=== PATIENT | female | born 1955 | race African-American/Black ===

== ENCOUNTER 2018-07-25 14:57 | Inpatient (IN) | payer MEDICAID ==
[~2018-07-25] VITALS: Ht 162.6 cm; Wt 58.5 kg
[2018-07-25] MEDS ORDERED: ALBU18HF2 IH (15:01)
[2018-07-25] MEDS ORDERED: IPRATROPIUM BROMIDE (0.02%) 0.5MG/2.5ML NEB HHN STA (16:18)
[2018-07-25] MEDS ORDERED: METHYLPREDNISOLONE SOD SUCC 125 MG/2 ML VIAL IV STA (16:18)
[2018-07-25] MEDS ORDERED: ALBUTEROL (0.083%) 2.5MG/3ML NEB HHN STA (16:18)
[2018-07-25] MEDS ORDERED: ASPIRIN 81MG TABLET PO ONE (16:30)
[2018-07-25 16:58] LABS: BASOPHILS % 0.9 % (0.0-2.0); CHLORIDE 109 mEq/L (98-107); EOSINOPHILS % 8.1 % (0.0-5.0); HEMATOCRIT. 40.2 % (36.0-48.0); HEMOGLOBIN. 13.1 g/dL (12.0-16.0); LYMPHOCYTES % 34.6 % (20.0-50.0); MEAN CORPUSCULAR HEMOGLOBIN 27.8 pg (28.0-32.0); MEAN CORPUSCULAR VOLUME 85.6 fL (81.0-99.0); MEAN PLATELET VOLUME 7.6 fl (7.4-10.4); MONOCYTES % 6.2 % (2.0-8.0); NEUTROPHILS % 50.2 % (40.0-76.0); PLATELET 219 x1000/uL (130-400); RED CELL DISTRIBUTION WIDTH 14.8 % (11.6-14.6)
[2018-07-25 17:09] LABS: PARTIAL THROMBOPLASTIN TIME 27.7 sec (23.4-31.0)
[2018-07-25] MEDS ORDERED: CLONIDINE 0.1MG TABLET PO PRN (18:45)
[2018-07-25] MEDS ORDERED: ACETAMINOPHEN 325MG TABLET PO PRN (18:45)
[2018-07-25] MEDS ORDERED: ONDANSETRON HCL 4MG/2ML INJ IV PRN (18:45)
[2018-07-25] MEDS ORDERED: ZOLPIDEM TARTRATE 5MG TABLET PO PRN (18:45)
[2018-07-25] MEDS ORDERED: GUAIFENESIN-DM 200MG-20MG/10ML UDC PO PRN (18:45)
[2018-07-25] MEDS ORDERED: GUAIFENESIN 600MG ER TABLET PO SCH (21:00)
[2018-07-25] MEDS ORDERED: GUAIFENESIN 600MG ER TABLET PO NR (23:00)
[2018-07-26] MEDS: IPRATROPIUM/ALBUTEROL 0.5-3(2.5)MG/3ML NEB HHN PRN ×2 (00:20→05:02)
[2018-07-26] MEDS: IPRATROPIUM/ALBUTEROL 0.5-3(2.5)MG/3ML NEB HHN SCH ×5 (00:20→21:04)
[2018-07-26 04:37] LABS: BASOPHILS % 0.6 % (0.0-2.0); EOSINOPHILS % 0.1 % (0.0-5.0); HEMATOCRIT. 41.3 % (36.0-48.0); HEMOGLOBIN. 13.3 g/dL (12.0-16.0); LYMPHOCYTES % 12.5 % (20.0-50.0); MEAN CORPUSCULAR HEMOGLOBIN 27.3 pg (28.0-32.0); MEAN CORPUSCULAR VOLUME 84.5 fL (81.0-99.0); MEAN PLATELET VOLUME 7.5 fl (7.4-10.4); MONOCYTES % 1.6 % (2.0-8.0); NEUTROPHILS % 85.2 % (40.0-76.0); PLATELET 225 x1000/uL (130-400); RED BLOOD CELL COUNT 4.89 mill/uL (4.2-5.4); RED CELL DISTRIBUTION WIDTH 14.9 % (11.6-14.6)
[2018-07-26 04:43] LABS: CHLORIDE 106 mEq/L (98-107)
[2018-07-26 08:00] VITALS: BP 99/51
[2018-07-26] MEDS: GUAIFENESIN 600MG ER TABLET PO SCH ×2 (08:59→21:55)
[2018-07-26] MEDS: METHYLPREDNISOLONE SOD SUCC 40 MG/ML VIAL IV SCH ×3 (10:05→17:05)
[2018-07-26 12:00] VITALS: BP 121/66
[2018-07-26 16:00] VITALS: BP 118/72
[2018-07-26 16:05] LABS: CLARITY URINE CLEAR (CLEAR); COLOR URINE YELLOW (YELLOW); KETONES URINE NEGATIVE (NEGATIVE); LEUKOCYTE ESTERASE URINE 1+ (NEGATIVE); NITRITE URINE NEGATIVE (NEGATIVE); OCCULT BLOOD URINE NEGATIVE (NEGATIVE); PH URINE 6.5 (4.5-8.0); PROTEIN URINE NEGATIVE (NEGATIVE); SPECIFIC GRAVITY URINE 1.016 (1.005-1.030); UROBILINOGEN URINE 0.2 E.U./dL (0.2-1.0)
[2018-07-26 16:29] LABS: CANNABINOID URINE SCREEN NEGATIVE (NEGATIVE)
[2018-07-26 16:30] LABS: *AMPHETAMINES SCREEN URINE NEGATIVE (NEGATIVE); *BARBITURATES SCREEN URINE NEGATIVE (NEGATIVE); *BENZODIAZEPINES SCREEN URINE NEGATIVE (NEGATIVE); *COCAINE SCREEN URINE PRESUMTIVE POSITIVE (NEGATIVE); METHADONE URINE SCREEN NEGATIVE (NEGATIVE); OPIATES URINE SCREEN NEGATIVE (NEGATIVE)
[2018-07-26 16:31] LABS: PHENCYCLIDINE URINE SCREEN NEGATIVE (NEGATIVE)
[2018-07-26] MEDS: MONTELUKAST SODIUM 10MG TABLET PO SCH (17:05)
[2018-07-26 20:00] VITALS: BP 119/57
[2018-07-27] MEDS: IPRATROPIUM/ALBUTEROL 0.5-3(2.5)MG/3ML NEB HHN SCH ×6 (00:22→17:40)
[2018-07-27] MEDS: METHYLPREDNISOLONE SOD SUCC 40 MG/ML VIAL IV SCH ×3 (00:45→16:19)
[2018-07-27 00:54] VITALS: BP 119/71
[2018-07-27 08:00] VITALS: BP 111/63
[2018-07-27] MEDS: GUAIFENESIN 600MG ER TABLET PO SCH (10:38)
[2018-07-27 12:00] VITALS: BP 107/61
[2018-07-27] MEDS ORDERED: POLYETHYLENE GLYCOL 3350 (17GM) 1 DOSE PACK PO SCH (13:30)
[2018-07-27] MEDS ORDERED: BENZONATATE 100MG CAPSULE PO PRN (13:30)
[2018-07-27] MEDS ORDERED: GUAI600T26 MT (14:10)
[2018-07-27] MEDS ORDERED: FLUT1DIS2 INH (14:10)
[2018-07-27] MEDS ORDERED: MED4 MT (14:10)
[2018-07-27 16:17] VITALS: BP 108/63
[2018-07-27] MEDS: MONTELUKAST SODIUM 10MG TABLET PO SCH (16:19)
[2018-07-27 17:05] VITALS: BP 108/63
== END 2018-07-27 18:05 | disposition home or self-care (01) | DRG 816 ==
LOC: ER 14:57 → 8WST 18:21 → EDBEDREQSVC 23:19 → ENRESERV 07-26 05:01
PROVIDERS: ADMIT Internal Medicine; ATTEND Internal Medicine
DX: T40.5X1A Poisoning by cocaine, accidental (unintentional), initial encounter (principal); J96.00 Acute respiratory failure, unspecified whether with hypoxia or hypercapnia; J44.1 Chronic obstructive pulmonary disease with (acute) exacerbation; E87.8 Other disorders of electrolyte and fluid balance, not elsewhere classified; K59.00 Constipation, unspecified; F14.90 Cocaine use, unspecified, uncomplicated; Z87.891 Personal history of nicotine dependence; Z79.899 Other long term (current) drug therapy; J68.0 Bronchitis and pneumonitis due to chemicals, gases, fumes and vapors
CPT/HCPCS: 36415; 71045; 80048; 80305; 83880; 84484; 93005; 93970; 96374; 99285; J2920; J2930; J7611; J7620

== ENCOUNTER 2018-12-16 05:22 | Inpatient (IN) | payer MEDICAID ==
[2018-12-16] VITALS (10 sets, daily range): BP systolic 125–156; BP diastolic 69–96
[~2018-12-16] VITALS: Ht 162.6 cm; Wt 54.4 kg
[~2018-12-16 05:22] MED LIST: ALBU18HF2 IH; FLUT1DIS2 INH; GUAI600T26 MT; MED4 MT
[2018-12-16] MEDS ORDERED: IPRATROPIUM BROMIDE (0.02%) 0.5MG/2.5ML NEB HHN STA (05:24)
[2018-12-16] MEDS ORDERED: MAGNESIUM 2 G PREMIX 50 ML IV STA (05:24)
[2018-12-16] MEDS ORDERED: ALBUTEROL (0.083%) 2.5MG/3ML NEB HHN STA (05:24)
[2018-12-16] MEDS ORDERED: METHYLPREDNISOLONE SOD SUCC 125 MG/2 ML VIAL IV STA (05:24)
[2018-12-16 05:47] LABS: HEMATOCRIT 41.9 % (36.0-48.0); HEMOGLOBIN 13.8 g/dL (12.0-16.0); MEAN CORPUSCULAR HEMOGLOBIN 27.8 pg (28.0-32.0); MEAN CORPUSCULAR VOLUME 84.5 fL (81.0-99.0); PLATELET 189 x1000/uL (130-400); RED BLOOD CELL COUNT 4.96 mill/uL (4.2-5.4); RED CELL DISTRIBUTION WIDTH 14.8 % (11.6-14.6)
[2018-12-16 06:00] LABS: CHLORIDE 105 mEq/L (98-107)
[2018-12-16] MEDS ORDERED: HYDROCODONE/ACETAMINOPHEN 5/325MG TABLET PO PRN (09:30)
[2018-12-16] MEDS ORDERED: LORAZEPAM 0.5MG TABLET PO PRN (09:30)
[2018-12-16] MEDS ORDERED: CLONIDINE 0.1MG TABLET PO PRN (09:30)
[2018-12-16] MEDS ORDERED: DOCUSATE SODIUM 100MG CAPSULE PO PRN (09:30)
[2018-12-16] MEDS ORDERED: IPRATROPIUM/ALBUTEROL 0.5-3(2.5)MG/3ML NEB INH PRN (09:30)
[2018-12-16] MEDS ORDERED: ONDANSETRON HCL 4MG/2ML INJ IV PRN (09:30)
[2018-12-16] MEDS ORDERED: ACETAMINOPHEN 325MG TABLET PO PRN (09:30)
[2018-12-16] MEDS: ENOXAPARIN 40MG/0.4ML SYR SUBCUT SCH (11:16)
[2018-12-16] MEDS: BUDESONIDE 0.5MG/2ML NEB HHN SCH ×2 (12:55→20:35)
[2018-12-16] MEDS ORDERED: GUAIFENESIN 200MG TABLET PO PRN (13:15)
[2018-12-16] MEDS: AMLODIPINE 2.5MG TABLET PO SCH (13:41)
[2018-12-16] MEDS ORDERED: METHYLPREDNISOLONE SOD SUCC 125 MG/2 ML VIAL IV SCH (14:00)
[2018-12-16 15:08] LABS: *AMPHETAMINES SCREEN URINE NEGATIVE (NEGATIVE)
[2018-12-16 15:09] LABS: *BARBITURATES SCREEN URINE NEGATIVE (NEGATIVE); *BENZODIAZEPINES SCREEN URINE NEGATIVE (NEGATIVE); *COCAINE SCREEN URINE PRESUMTIVE POSITIVE (NEGATIVE); CANNABINOID URINE SCREEN NEGATIVE (NEGATIVE); OPIATES URINE SCREEN NEGATIVE (NEGATIVE); PHENCYCLIDINE URINE SCREEN NEGATIVE (NEGATIVE)
[2018-12-16 15:10] LABS: METHADONE URINE SCREEN NEGATIVE (NEGATIVE)
[2018-12-16] MEDS: IPRATROPIUM/ALBUTEROL 0.5-3(2.5)MG/3ML NEB HHN SCH ×2 (16:56→20:36)
[2018-12-16] MEDS: MONTELUKAST SODIUM 10MG TABLET PO SCH (17:47)
[2018-12-16] MEDS: METHYLPREDNISOLONE SOD SUCC 125 MG/2 ML VIAL IV SCH (21:42)
[2018-12-17] VITALS: BP 135/84
[2018-12-17] MEDS: IPRATROPIUM/ALBUTEROL 0.5-3(2.5)MG/3ML NEB HHN SCH ×5 (00:30→16:19)
[2018-12-17 02:00] VITALS: BP 122/74
[2018-12-17 04:00] VITALS: BP 128/90
[2018-12-17] MEDS: METHYLPREDNISOLONE SOD SUCC 125 MG/2 ML VIAL IV SCH ×2 (05:32→13:25)
[2018-12-17 05:39] LABS: HEMATOCRIT. 44.6 % (36.0-48.0); HEMOGLOBIN. 14.6 g/dL (12.0-16.0); MEAN CORPUSCULAR VOLUME 85.4 fL (81.0-99.0); PLATELET 248 x1000/uL (130-400); RED BLOOD CELL COUNT 5.22 mill/uL (4.2-5.4)
[2018-12-17 05:41] LABS: CHLORIDE 104 mEq/L (98-107)
[2018-12-17] MEDS: BUDESONIDE 0.5MG/2ML NEB HHN SCH (07:58)
[2018-12-17 08:00] VITALS: BP 120/63
[2018-12-17] MEDS: ENOXAPARIN 40MG/0.4ML SYR SUBCUT SCH (09:00)
[2018-12-17] MEDS: AMLODIPINE 2.5MG TABLET PO SCH (09:00)
[2018-12-17 12:00] VITALS: BP 110/73
[2018-12-17 12:17] LABS: PLATELET ESTIMATE NORMAL
[2018-12-17 15:04] VITALS: BP 111/62
[2018-12-17] MEDS: MONTELUKAST SODIUM 10MG TABLET PO SCH (16:20)
[2018-12-17] MEDS ORDERED: METHYLPREDNISOLONE SOD SUCC 40 MG/ML VIAL IV SCH (22:00)
== END 2018-12-17 17:37 | disposition home or self-care (01) | DRG 816 ==
LOC: ER 05:22 → 5EST 05:53 → ENRESERV 07:29
PROVIDERS: ADMIT Internal Medicine; ATTEND Internal Medicine
DX: T40.5X1A Poisoning by cocaine, accidental (unintentional), initial encounter (principal); J96.00 Acute respiratory failure, unspecified whether with hypoxia or hypercapnia; E87.8 Other disorders of electrolyte and fluid balance, not elsewhere classified; J44.1 Chronic obstructive pulmonary disease with (acute) exacerbation; J68.0 Bronchitis and pneumonitis due to chemicals, gases, fumes and vapors; F14.90 Cocaine use, unspecified, uncomplicated; K59.00 Constipation, unspecified; Z87.891 Personal history of nicotine dependence; Y92.89 Other specified places as the place of occurrence of the external cause; Z79.899 Other long term (current) drug therapy
CPT/HCPCS: 36415; 71045; 80048; 80305; 85027; 93005; 96374; 99285; J1650; J2930; J3475; J7611; J7620; J7626

== ENCOUNTER 2019-02-19 00:04 | Emergency (ER) | payer MEDICAID ==
[~2019-02-19] VITALS: Ht 162.6 cm; Wt 56.0 kg
[2019-02-19] MEDS ORDERED: IPRATROPIUM BROMIDE (0.02%) 0.5MG/2.5ML NEB HHN STA (03:18)
[2019-02-19] MEDS: ALBUTEROL (0.083%) 2.5MG/3ML NEB HHN STA ×2 (03:20→04:17)
[2019-02-19 03:41] LABS: BASOPHILS % 0.6 % (0.0-2.0); EOSINOPHILS % 10.2 % (0.0-5.0); LYMPHOCYTES % 17.4 % (20.0-50.0); MEAN CORPUSCULAR HEMOGLOBIN 27.7 pg (28.0-32.0); MEAN PLATELET VOLUME 7.3 fl (7.4-10.4); MONOCYTES % 6.5 % (2.0-8.0); NEUTROPHILS % 65.3 % (40.0-76.0); PLATELET 214 x1000/uL (130-400); RED BLOOD CELL COUNT 4.71 mill/uL (4.2-5.4); RED CELL DISTRIBUTION WIDTH 14.6 % (11.6-14.6)
[2019-02-19 03:46] LABS: CHLORIDE 106 mEq/L (98-107)
[2019-02-19 06:15] VITALS: BP 122/77
== END 2019-02-19 06:30 | disposition home or self-care (01) ==
LOC: ER 00:04
DX: J44.1 Chronic obstructive pulmonary disease with (acute) exacerbation (principal); I10 Essential (primary) hypertension; Z98.51 Tubal ligation status; Z87.891 Personal history of nicotine dependence
CPT/HCPCS: 36415; 71045; 80053; 83880; 84484; 85025; 93005; 94640; 99284; J7611; Z7610

== ENCOUNTER 2019-03-02 22:21 | Inpatient (IN) | payer MEDICAID ==
[2019-03-01] MEDS: ALBUTEROL (0.083%) 2.5MG/3ML NEB HHN SCH (23:55)
[~2019-03-02] VITALS: Ht 162.6 cm; Wt 56.7 kg
[2019-03-02] MEDS ORDERED: IPRATROPIUM BROMIDE (0.02%) 0.5MG/2.5ML NEB HHN STA (22:38)
[2019-03-02] MEDS ORDERED: METHYLPREDNISOLONE SOD SUCC 125 MG/2 ML VIAL IV STA (22:38)
[2019-03-02] MEDS: ALBUTEROL (0.083%) 2.5MG/3ML NEB HHN SCH ×2 (22:45→23:25)
[2019-03-02 23:45] LABS: EOSINOPHILS % 9.4 % (0.0-5.0); HEMOGLOBIN. 13.6 g/dL (12.0-16.0); LYMPHOCYTES % 33.9 % (20.0-50.0); MEAN CORPUSCULAR HEMOGLOBIN 27.6 pg (28.0-32.0); MEAN CORPUSCULAR VOLUME 85.2 fL (81.0-99.0); MEAN PLATELET VOLUME 7.9 fl (7.4-10.4); MONOCYTES % 6.2 % (2.0-8.0); NEUTROPHILS % 49.5 % (40.0-76.0); PLATELET 261 x1000/uL (130-400); RED BLOOD CELL COUNT 4.93 mill/uL (4.2-5.4); RED CELL DISTRIBUTION WIDTH 14.7 % (11.6-14.6)
[2019-03-03 00:08] LABS: CHLORIDE 103 mEq/L (98-107)
[2019-03-03 00:56] LABS: BG BASE EXCESS 1.7 mmol/L (-2.0-2.0); BG DEOXYHEMOGLOBIN 8.2 % (0.0-5.0); BG FRACTION INSPIRED OXYGEN 28; BG HCO3 ACT 27.6 mmol/L (22.0-26.0); BG METHEMOGLOBIN 0.4 % (0.0-1.5); BG OXYGEN SATURATION 91.7 % (92.0-98.5); BG OXYHEMOGLOBIN 90.4 % (94.0-97.0); BG PH 7.377 (7.350-7.450); BG PO2 62.2 mmHg (75.0-100.0); BG SAMPLE SITE RIGHT BRACHIAL; BG TOTAL HEMOGLOBIN 14.4 g/dL (12.0-18.0); BG VENT MODE NASAL CANNULA
[2019-03-03 03:25] VITALS: BP_SYST 110; BP_DIAS 60; BP_DIAS 67
[2019-03-03] MEDS ORDERED: HYDR12.529 MT (04:32)
[2019-03-03] MEDS ORDERED: LORAZEPAM 2MG/ML CPJ IV PRN (05:15)
[2019-03-03] MEDS: METHYLPREDNISOLONE SOD SUCC 40 MG/ML VIAL IV SCH ×3 (06:06→22:35)
[2019-03-03] MEDS: OMEPRAZOLE 20MG CAPSULE EXTENDED RELEASE PO SCH (06:09)
[2019-03-03] MEDS ORDERED: INFLUENZA VIRUS VACCINE(AFLURIA) 0.5ML SYR IM ONE (06:30)
[2019-03-03] MEDS ORDERED: PNEUMOCOCCAL 23-VAL P-SAC VAC 0.5 ML IM ONE (06:30)
[2019-03-03 08:00] VITALS: BP 109/72
[2019-03-03] MEDS ORDERED: ONDANSETRON HCL 4MG/2ML INJ IV PRN (08:45)
[2019-03-03] MEDS ORDERED: HYDROCODONE/ACETAMINOPHEN 5/325MG TABLET PO PRN (08:45)
[2019-03-03] MEDS ORDERED: GUAIFENESIN 200MG TABLET PO PRN (08:45)
[2019-03-03] MEDS: HYDROCHLOROTHIAZIDE 12.5MG CAPSULE PO SCH (08:56)
[2019-03-03] MEDS: ENOXAPARIN 40MG/0.4ML SYR SUBCUT SCH (08:56)
[2019-03-03 09:15] LABS: BASOPHILS % 0.4 % (0.0-2.0); HEMATOCRIT. 43.5 % (36.0-48.0); HEMOGLOBIN. 13.9 g/dL (12.0-16.0); LYMPHOCYTES % 10.7 % (20.0-50.0); MEAN CORPUSCULAR HEMOGLOBIN 27.2 pg (28.0-32.0); MEAN CORPUSCULAR VOLUME 85.2 fL (81.0-99.0); MEAN PLATELET VOLUME 7.7 fl (7.4-10.4); MONOCYTES % 0.8 % (2.0-8.0); NEUTROPHILS % 88.1 % (40.0-76.0); PLATELET 285 x1000/uL (130-400); RED BLOOD CELL COUNT 5.11 mill/uL (4.2-5.4); RED CELL DISTRIBUTION WIDTH 14.6 % (11.6-14.6)
[2019-03-03] MEDS: IPRATROPIUM/ALBUTEROL 0.5-3(2.5)MG/3ML NEB HHN SCH ×4 (09:27→21:44)
[2019-03-03] MEDS: BUDESONIDE 0.5MG/2ML NEB HHN SCH ×2 (09:27→21:44)
[2019-03-03 09:32] LABS: CHLORIDE 103 mEq/L (98-107)
[2019-03-03 09:44] LABS: CREATINE KINASE 221 IU/L (26-192); LDL CHOLESTEROL 91 mg/dL (5-100)
[2019-03-03 09:45] LABS: CREATINE KINASE MB FRACTION 5.8 ng/mL (0.5-3.6)
[2019-03-03 09:46] LABS: HDL CHOLESTEROL 56 mg/dL (40-59)
[2019-03-03 12:00] VITALS: BP 101/64
[2019-03-03 12:34] LABS: *AMPHETAMINES SCREEN URINE NEGATIVE (NEGATIVE); *BARBITURATES SCREEN URINE NEGATIVE (NEGATIVE); *BENZODIAZEPINES SCREEN URINE NEGATIVE (NEGATIVE); *COCAINE SCREEN URINE PRESUMTIVE POSITIVE (NEGATIVE)
[2019-03-03 12:35] LABS: CANNABINOID URINE SCREEN NEGATIVE (NEGATIVE); METHADONE URINE SCREEN NEGATIVE (NEGATIVE); OPIATES URINE SCREEN NEGATIVE (NEGATIVE); PHENCYCLIDINE URINE SCREEN NEGATIVE (NEGATIVE)
[2019-03-03 15:45] VITALS: BP 129/75
[2019-03-03 16:03] LABS: CREATINE KINASE 210 IU/L (26-192)
[2019-03-03 16:04] LABS: CREATINE KINASE MB FRACTION 5.3 ng/mL (0.5-3.6)
[2019-03-03 20:00] VITALS: BP 127/52
[2019-03-04] VITALS: BP 115/54
[2019-03-04] MEDS: IPRATROPIUM/ALBUTEROL 0.5-3(2.5)MG/3ML NEB HHN SCH ×5 (01:42→16:56)
[2019-03-04 04:00] VITALS: BP 98/62
[2019-03-04] MEDS: METHYLPREDNISOLONE SOD SUCC 40 MG/ML VIAL IV SCH ×2 (06:23→13:25)
[2019-03-04] MEDS: OMEPRAZOLE 20MG CAPSULE EXTENDED RELEASE PO SCH (06:23)
[2019-03-04 07:11] LABS: BASOPHILS % 0.5 % (0.0-2.0); HEMATOCRIT. 40.1 % (36.0-48.0); HEMOGLOBIN. 13.1 g/dL (12.0-16.0); LYMPHOCYTES % 7.8 % (20.0-50.0); MEAN CORPUSCULAR HEMOGLOBIN 27.5 pg (28.0-32.0); MEAN CORPUSCULAR VOLUME 84.1 fL (81.0-99.0); MEAN PLATELET VOLUME 7.9 fl (7.4-10.4); MONOCYTES % 4.6 % (2.0-8.0); NEUTROPHILS % 87.1 % (40.0-76.0); PLATELET 283 x1000/uL (130-400); RED BLOOD CELL COUNT 4.77 mill/uL (4.2-5.4); RED CELL DISTRIBUTION WIDTH 14.5 % (11.6-14.6)
[2019-03-04 07:20] LABS: CHLORIDE 102 mEq/L (98-107)
[2019-03-04 08:00] VITALS: BP 117/62
[2019-03-04] MEDS: ENOXAPARIN 40MG/0.4ML SYR SUBCUT SCH (08:17)
[2019-03-04] MEDS: HYDROCHLOROTHIAZIDE 12.5MG CAPSULE PO SCH (08:18)
[2019-03-04] MEDS: BUDESONIDE 0.5MG/2ML NEB HHN SCH (08:33)
[2019-03-04 12:00] VITALS: BP 130/68
[2019-03-04] MEDS ORDERED: P20 MT (14:32)
[2019-03-04] MEDS ORDERED: PANT40TA4 MT (14:32)
[2019-03-04 14:59] VITALS: BP 130/68
[2019-03-04 16:00] VITALS: BP 103/53
[2019-03-04] MEDS ORDERED: PREDNISONE 20MG TABLET PO SCH (17:00)
== END 2019-03-04 17:25 | disposition home or self-care (01) | DRG 816 ==
LOC: ER 22:21 → 8WST 03-03 02:17 → EDBEDREQ 03-03 02:38 → EDBEDREQTM 03-03 02:38 → EDBEDREQDT 03-03 02:38 → ENRESERV 03-03 02:46
PROVIDERS: ADMIT Internal Medicine; ATTEND Internal Medicine
DX: T40.5X1A Poisoning by cocaine, accidental (unintentional), initial encounter (principal); J96.01 Acute respiratory failure with hypoxia; D72.1 Eosinophilia; J68.0 Bronchitis and pneumonitis due to chemicals, gases, fumes and vapors; J44.1 Chronic obstructive pulmonary disease with (acute) exacerbation; K21.9 Gastro-esophageal reflux disease without esophagitis; F14.10 Cocaine abuse, uncomplicated; F17.210 Nicotine dependence, cigarettes, uncomplicated; I10 Essential (primary) hypertension; Z79.899 Other long term (current) drug therapy; Z71.6 Tobacco abuse counseling; Z71.51 Drug abuse counseling and surveillance of drug abuser; Y92.89 Other specified places as the place of occurrence of the external cause
CPT/HCPCS: 36415; 36600; 71045; 80048; 80061; 80305; 82375; 82550; 82553; 82805; 83735; 83880; 84443; 84484; 90686; 90732; 93005; 93970; 94640; 96374; 99285; J1650; J2920; J2930; J7611; J7620; J7626

== ENCOUNTER 2019-03-21 23:22 | Emergency (ER) | payer MEDICAID ==
[~2019-03-21] VITALS: Ht 157.5 cm; Wt 68.0 kg
[~2019-03-21 23:22] MED LIST changes: +HYDR12.529 MT; -MED4 MT; +P20 MT; +PANT40TA4 MT
[2019-03-21] MEDS ORDERED: MAGNESIUM 2 G PREMIX 50 ML IV STA (23:48)
[2019-03-21] MEDS ORDERED: METHYLPREDNISOLONE SOD SUCC 125 MG/2 ML VIAL IV STA (23:48)
[2019-03-21] MEDS ORDERED: ALBUTEROL (0.083%) 2.5MG/3ML NEB HHN STA (23:48)
[2019-03-21] MEDS ORDERED: IPRATROPIUM BROMIDE (0.02%) 0.5MG/2.5ML NEB HHN STA (23:48)
[2019-03-22] MEDS ORDERED: ACETAMINOPHEN 325MG TABLET PO ONE
[2019-03-22 06:14] VITALS: BP 123/65
== END 2019-03-22 06:17 | disposition home or self-care (01) ==
LOC: ER 23:22
DX: J44.1 Chronic obstructive pulmonary disease with (acute) exacerbation (principal); F14.10 Cocaine abuse, uncomplicated; K21.9 Gastro-esophageal reflux disease without esophagitis; F17.200 Nicotine dependence, unspecified, uncomplicated; Z79.899 Other long term (current) drug therapy
CPT/HCPCS: 94644; 96365; 96366; 96375; 99285; J2930; J3475; J7611; Z7610; 99283

== ENCOUNTER 2020-02-16 12:36 | Emergency (ER) | payer MEDICAID ==
[~2020-02-16] VITALS: Ht 157.5 cm; Wt 55.0 kg
[2020-02-16 16:25] VITALS: BP 161/88
== END 2020-02-16 16:26 | disposition home or self-care (01) ==
LOC: ER 13:01
DX: U07.1 COVID-19 (principal); J44.1 Chronic obstructive pulmonary disease with (acute) exacerbation; F14.10 Cocaine abuse, uncomplicated; K21.9 Gastro-esophageal reflux disease without esophagitis; Z79.899 Other long term (current) drug therapy
CPT/HCPCS: 71045; 87635; 93005; 99285; C9803